=== PATIENT | female | born 1950 ===

== ENCOUNTER 2017-05-30 10:14 | Day surgery (SDC) | payer OTHER ==
[~2017-05-30 10:14] MED LIST: BACLOFEN10 MG PO; CIPRO500 MG PO; FLONASE16 G1 NS; FOLIC ACID1 MG PO; FOSAMAX70 MG; LEVO-T75 MCG PO; METHOTREXA2.5 MG/DOS; OMEPRAZOLE40 MG PO; PYRIDIUM DS200 MG PO; SULINDAC150 MG PO; SULINDAC200 MG; SYNTHROID50 MCG PO; TRAMADOL HCL50 MG PO; ZANTAC300 MG PO; ZITHROMAX500 MG PO; ZOLOFT20 MG/1 ML PO; ZYRTEC10 MG PO; [UNRECOGNIZED DRUG - OTHER] PO
[2017-05-30] MEDS ORDERED: CIPRO500 MG PO (13:50)
[2017-05-30] MEDS ORDERED: PERCOCET 5-3251 EACH PO (13:50)
== END 2017-05-30 16:45 | disposition home or self-care (01) ==
LOC: CIR.AMB 10:14
DX: S52.532A Colles' fracture of left radius, initial encounter for closed fracture (principal); E07.89 Other specified disorders of thyroid

== ENCOUNTER → 2020-07-18 | Emergency (ER) | payer OTHER ==
[~2020-07-18] VITALS: Ht 154.9 cm; Wt 70.3 kg
[~2020-07-18] MED LIST changes: +FOLIC ACID0.4 MG PO; +LEVOTHYROXINE25 MCG PO; +PERCOCET 5-3251 EACH PO
== END | disposition home or self-care (01) ==
LOC: ER 17:26
DX: H66.92 Otitis media, unspecified, left ear (principal); M54.2 Cervicalgia

== ENCOUNTER 2020-08-03 14:06 | Outpatient (CLI) | payer OTHER | END 2020-08-03 17:50 | disposition home or self-care (01) | LOC: OFIC 805 14:06 | PROVIDERS: ATTEND Otolaryngology Otology & Neurotology | DX: K21.9 Gastro-esophageal reflux disease without esophagitis (principal); M54.2 Cervicalgia; J37.0 Chronic laryngitis ==

== ENCOUNTER 2021-02-27 22:04 | Emergency (ER) | payer OTHER ==
[~2021-02-27] VITALS: Ht 160 cm; Wt 65.8 kg
[2021-02-27] MEDS ORDERED: METHOTREXATE2.5 MG (22:15)
[2021-02-28] MEDS ORDERED: BACTRIM DS TAB1 EACH PO (01:22)
[2021-02-28] MEDS ORDERED: PYRIDIUM200 MG PO (01:22)
== END 2021-02-28 01:45 | disposition home or self-care (01) ==
LOC: ER 22:04
DX: N39.0 Urinary tract infection, site not specified (principal); K64.8 Other hemorrhoids

== ENCOUNTER 2021-12-28 02:27 | Emergency (ER) | payer OTHER ==
[~2021-12-28] VITALS: Ht 154.9 cm; Wt 60.3 kg
[~2021-12-28 02:27] MED LIST changes: +BACTRIM DS TAB1 EACH PO; +METHOTREXATE2.5 MG; +PYRIDIUM200 MG PO
[2021-12-28] MEDS ORDERED: NABUMETONE750 MG PO (02:46)
[2021-12-28] MEDS ORDERED: PANTOPRAZOLE SO40 M2 PO (02:47)
== END 2021-12-28 10:16 | disposition home or self-care (01) ==
LOC: ER 02:27
DX: R31.9 Hematuria, unspecified (principal); F32.A Depression, unspecified; E03.9 Hypothyroidism, unspecified; M19.90 Unspecified osteoarthritis, unspecified site; Z88.0 Allergy status to penicillin; N20.0 Calculus of kidney; Z87.442 Personal history of urinary calculi; K80.20 Calculus of gallbladder without cholecystitis without obstruction